=== PATIENT | male | born 1990 | race Caucasian/White ===

== ENCOUNTER 2023-02-10 11:07 | Emergency (ER) | payer MEDICAID, OTHER, SELFPAY ==
[2023-02-10 11:40] VITALS: BP 144/97; PULSE 64; RESP 20; TEMP 37; O2SAT 99; BMI 33.3
--- NOTE | 2023-02-10 11:42 | ED.GENADULT ---
HPI - General Adult General Chief complaint: Eye Problems Stated complaint: eye pain twitching Time Seen by Provider: 02/10/23 16:00 Source: patient Mode of arrival: ambulatory Limitations: language barrier History of Present Illness HPI narrative: Patient is a 32 year old assigned male at with a history of iritis presenting to the emergency department today with bilateral eye twitching and intermittent double vision. Patient states that for the last year and a half, he has had intermittent bilateral eye twitching and double vision. Patient states he saw an internal communications specialist in [place] a year and a half ago where they treated him for irritated eyes with drops and an ointment. Patient states that he has not seen a specialist since moving here. 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 Patient denies any current dizziness, lightheadedness, abdominal pain, nausea, vomiting, fever, chills, blurry vision, double vision, loss of vision, chest pain, difficulty breathing, shortness of breath, back pain, night sweats, pain with urination, increased urinary frequency, increased urinary urgency, blood in his urine or stool, syncope or a near syncopal episode, recent trauma or falls, bowel incontinence, bladder incontinence, bowel retention, bladder retention, or any other complaints at this time. Onset (ago): year(s) (1.5) Location: eyes Severity: mild Severity scale (1-10): 3 Relieving factors: none Exacerbating factors: none Associated symptoms: denies other symptoms Treatments prior to arrival: none Related Data Previous Rx's Medication Instructions Recorded erythromycin 5 mg/gram (0.5 %) eye 0.5 inch ophthalmic (eye) Q4H #3.5 02/10/23 ointment grams ketorolac 0.4 % eye drops 1 drp ophthalmic (eye) QID #5 mL 02/10/23 loratadine 10 mg tablet 10 mg PO DAILY #30 tabs 02/10/23 Allergies Allergy/AdvReac Type Severity Reaction Status Date / Time No Known Allergies Allergy Verified 02/10/23 11:56 Review of Systems Constitutional: Constitutional: Reports no additional constitutional complaints, Denies chills, Denies fever(s) and Denies night sweats Eyes: Eyes: Reports no additional eye complaints, Reports blurry vision (now resolved), Denies change in vision, Reports diplopia (now resolved), Denies eye discharge, Denies loss of vision and Denies eye pain ENT: Denies dizziness Cardiovascular: Cardiovascular: Reports no additional cardiovascular complaints, Denies chest pain, Denies lightheadedness, Denies Loss of Consciousness and Denies dyspnea Respiratory: Respiratory: Reports no additional respiratory complaints and Denies dyspnea Gastrointestinal: Gastrointestinal: Reports no additional gastrointestinal complaints, Denies abdominal pain, Denies melena, Denies hematochezia, Denies change in bowel habits and Denies change in stool character Genitourinary: Genitourinary: Reports no additional male genitourinary complaints, Denies hematuria, Denies oliguria, Denies difficulty urinating, Denies dysuria, Denies urinary frequency, Denies urinary hesitancy, Denies urinary incontinence and Denies urinary urgency Musculoskeletal: Musculoskeletal: Reports no additional musculoskeletal complaints, Denies numbness and Denies tingling Neurologic: Denies dizziness, Denies loss of vision, Denies numbness and Denies tingling Psychiatric: Psychiatric: Reports no additional psychiatric complaints Endocrine: Endocrine: Reports no additional endocrine complaints Hematologic/Lymphatic: Hematologic/Lymphatic: Reports no additional hematologic/lymphatic complaints Allergic/Immunologic: Allergic/Immunologic: Reports no additional allergic/immunologic complaints PMFSH Past Medical History Attestation statement: The following information was validated with the patient. Source: old records reviewed and nursing notes reviewed Social History Social History Advance Directives: No Advance Directives Information Provided: No Physical Exam ED Vital Signs: Vital Signs - 24 hr 02/10/23 11:40 02/10/23 15:38 Temperature 98.6 F 98.2 F Pulse Rate 64 89 Respiratory Rate 20 17 Blood Pressure 144/97 H 144/94 H Pulse Oximetry 99 99 Oxygen Delivery Method Room Air Room Air BMI result Body Mass Index 33.3 Const General: cooperative, no acute distress, alert and awake Nutritional Appearance: well nourished Orientation/consciousness: patient oriented x3 Limitations: no limitations HENMT Head: Yes normal to inspection and Yes atraumatic Ears: hearing grossly normal bilaterally and external ears normal General nose exam: Normal external nose present, no nasal discharge noted and no epistaxis Face and sinus: Yes normal facial exam, No abrasion and No laceration Mouth: Normal oral and palatal mucosa present, no drooling and no muffled voice Eyes General: appearance normal, both eyes and all related structures Periorbital: periorbital findings normal Eyelids: Yes eyelids normal Conjunctivae: conjunctivae normal Pupils: Equal, round and reactive pupils present EOM: EOMs intact bilaterally Neck Neck: Yes normal visual inspection, Yes full ROM and Yes no lymphadenopathy Chest Chest palpation & inspection: normal inspection of the chest Resp Effort & Inspection: normal respiratory effort and able to speak in complete sentences GI Inspection: Yes normal to inspection Neuro General: patient oriented x3 and moves all extremities Cranial nerves: Yes Equal, round and reactive pupils present Cognition (Neuro): normal cognition Motor exam (neuro): 5/5 motor strength present throughout Sensory Exam: Normal double simultaneous stimulation for sensation Coordination: [id number] test normal Extrem General: Yes normal to inspection, Yes full ROM and Yes capillary refill normal Psych Appearance: grossly normal Mental Status: mental status grossly normal Affect: normal affect Attitude: cooperative Thought process: Normal thought process present Thought content: Normal thought content present Insight: Good insight present (Psych) Course Course Course Narrative: This is a rapid medical exam: Additional HPI, ROS, PE not included below will be deferred to primary provider. Patient is a 32-year-old [place]ican-speaking male presenting to the emergency department with complaint of double vision to right eye for the past 10-15 days. He denies any injury or trauma. States he was seen at the clinic in [place] and was sent to the emergency department to rule out a more serious etiology but he eloped from ED that day due to the wait. States in [place] 1-1.5 yrs ago, had same symptoms, saw an rubber cutter and shape carver, and was given eyedrops for infection and pressure which improved his symptoms. Reports diplopia is horizontal, intermittent, and has pain as a prodromal symptom prior to diplopia episodes. Plan: visual acuity Medical Decision Making Medical Decision Making MDM Narrative: Patient is a 32 year old assigned male at with a history of iritis presenting to the emergency department today with intermittent bilateral eye irritation and blurry vision. Patient's physical exam was unremarkable. Patient's ocular pressure on the right was 17 and the left was 20. Patient's visual acuity was appropriate. I explained my physical exam findings as well as all test results to the patient. I answered all questions asked by the patient. Will cover for corneal abrasion vs. iritis and have him follow up with an internal communications specialist. I stressed the importance of the patient taking his medication as prescribed. I stressed the importance of the patient following up with his primary care provider and an internal communications specialist. I stressed the importance of the patient returning to the emergency department immediately if his symptoms were to worsen or if he were to develop any dizziness, shortness of breath, difficulty breathing, chest pain, blurry vision, loss of vision, nausea, vomiting, abdominal pain, fever, chills, back pain, or any other complaints. Patient verbalized agreement and understanding with this treatment plan and discharge. Differential Diagnosis Differential Diagnoses: The differential diagnosis associated with the presentation includes Iritis Corneal abrasion Glaucoma Seasonal allergies Tests considered The following testing was considered but not selected: CT scan of the head and neck were considered however, the patient's current presentation does not warrant imaging. Prescription Management I considered prescription management with: Pain Medication (patient prescribed pain relief eye drops) and Antibiotic (patient prescribed an ocular antibiotic) Discharge Plan Discharge Clinical Impression: Acute iritis Patient Disposition: Home, Self-Care Instructions: Iritis (ED) Additional Instructions: Follow up with your primary care provider and an internal communications specialist. Return to the emergency department immediately if your symptoms worsen or if you develop any dizziness, shortness of breath, difficulty breathing, chest pain, blurry vision, loss of vision, nausea, vomiting, abdominal pain, fever, chills, back pain, or any other complaints. Sarah un seguimiento con victoria proveedor de atenci?n primaria y un oftalm?logo. Regrese al departamento de emergencias inmediatamente si carolina s?ntomas empeoran o si presenta mareos, dificultad para respirar, dificultad para respirar, dolor en el pecho, visi?n borrosa, p?rdida de la visi?n, n?useas, v?mitos, dolor abdominal, fiebre, escalofr?os, dolor de espalda o cualquier otras quejas. Prescriptions: New loratadine 10 mg tablet 10 mg PO DAILY Qty: 30 0RF ketorolac 0.4 % drops 1 drp ophthalmic (eye) QID Qty: 5 0RF erythromycin 5 mg/gram (0.5 %) ointment 0.5 inch ophthalmic (eye) Q4H Qty: 3.5 0RF Referrals: [facility] [[place] Group] (Call to establish and follow up with a primary care provider. If you already have a primary care provider, please follow up with them. Llame para establecer y realizar un seguimiento con un proveedor de atenci?n primaria. Si ya tiene un proveedor de atenci?n primaria, sarah un seguimiento con ?l.) [facility] [facility] [Provider Group] (Call to establish and follow up with a primary care provider. If you already have a primary care provider, please follow up with them. Llame para establecer y realizar un seguimiento con un proveedor de atenci?n primaria. Si ya tiene un proveedor de atenci?n primaria, sarah un seguimiento con ?l.) [facility] [place] [facility] [[facility]] (Call to establish and follow up with a primary care provider. If you already have a primary care provider, please follow up with them. Llame para establecer y realizar un seguimiento con un proveedor de atenci?n primaria. Si ya tiene un proveedor de atenci?n primaria, sarah un seguimiento con ?l.) [facility] [Physician] - (Call to establish and follow up with an internal communications specialist. Llame para establecer y realizar un seguimiento con un oftalm?logo.) Stand Alone Forms: Work/School Release Print Language: Puerto [place]ican
[2023-02-10 15:38] VITALS: BP 144/94; PULSE 89; RESP 17; TEMP 36.8; O2SAT 99
== END 2023-02-10 16:54 | disposition home or self-care (01) ==
PROVIDERS: Emergency Provider Emergency Medicine
DX: H20.013 Primary iridocyclitis, bilateral (principal); H53.8 Other visual disturbances
CPT/HCPCS: 99283

== ENCOUNTER 2023-12-31 23:27 | Emergency (ER) | payer SELFPAY ==
[2023-12-31 23:56] VITALS: BP 146/86; PULSE 79; RESP 18; TEMP 36.6; O2SAT 100; BMI 32.1
[2024-01-01 00:37] LABS: IDNOW Serial# 9DB6401D; Influenza A Negative (Negative); Influenza B2 Negative (Negative)
[2024-01-01 00:38] LABS: COVID-19 Test Negative (Negative); IDNOW Serial# 152EDE1D
--- NOTE | 2024-01-01 00:59 | ED_ITS ---
HPI - Headache General Chief Complaint: Headache Stated Complaint: Naseaous/head hurts/eyes hurt Time Seen by Provider: 01/01/24 00:56 Source: patient Mode of arrival: ambulatory Limitations: no limitations History of Present Illness ED Provider: david MONTEZ Narrative: Patient with history of headaches never been diagnose who has not seen PCP for headaches comes here for right-sided headache with light sensitivity and nausea for last 3 days took Excedrin feeling slightly better no fever no chills no neck pain Related Data Previous Rx's ?Medication ?Instructions ?Recorded erythromycin 5 mg/gram (0.5 %) eye 0.5 inch ophthalmic (eye) Q4H #3.5 02/10/23 ointment grams ketorolac 0.4 % eye drops 1 drp ophthalmic (eye) QID #5 mL 02/10/23 loratadine 10 mg tablet 10 mg PO DAILY #30 tabs 02/10/23 [id number] 1 tab PO Q6H PRN haeadace #20 tabs 01/01/24 50 mg-325 mg-40 mg tablet sumatriptan succinate 50 mg tablet 50 mg PO Q2H PRN migraine headache 01/01/24 (Imitrex) #10 tabs Allergies Allergy/AdvReac Type Severity Reaction Status Date / Time No Known Allergies Allergy Verified 12/31/23 23:58 Review of Systems Review of Systems: Yes all other systems are reviewed and are negative [facility] Social History Social History Alcohol intake: current Alcohol intake frequency: holidays/special occasions only Use of substances other than those prescribed or required for medical reasons: No Advance Directives: No Advance Directives Information Provided: Yes Physical Exam Vital Signs: Vital Signs: Last Vital Signs Temp 97.8 F 01/01/24 02:32 Pulse 79 01/01/24 02:32 Resp 18 01/01/24 02:32 BP 146/86 H 01/01/24 02:32 Pulse Ox 100 01/01/24 02:32 O2 Del Method Room Air 01/01/24 02:32 BMI result Body Mass Index 32.1 Appearance: Alert. Oriented X3. No acute distress. Eyes: Photosensitive ENT: Pharynx normal. Oral Mucosa moist no temporal artery tenderness Neck: Normal inspection. Neck supple. CVS: Normal heart rate and rhythm. Pulses normal. Respiratory: No respiratory distress. Equal air entry bilateral, no wheezing/rales/rhonchi Abdomen: Soft and nontender. Bowel sounds are present, no mass palpable, no CVA tenderness Skin: Skin warm and dry. Normal skin color. Normal skin turgor. Extremities: No lower extremity edema. No calf tenderness Neuro: Oriented X 3. No motor deficit. No sensory deficit.No cerebellar signs , cranial nerves II-XII intact Medications Administered Discontinued Medications Generic Name Dose Route Start Last Admin Trade Name Freq PRN Reason Stop Dose Admin Sumatriptan Succinate 6 mg 01/01/24 01:19 01/01/24 01:44 Sumatriptan Succinate 6 Mg/0.5 Ml Vial SUBCUT 01/01/24 01:20 6 mg ONCE ONE Administration Medical Decision Making Medical Decision Making [facility] Narrative: Patient clinically with migraine headache responded to Imitrex will discharge patient home on Imitrex and Fioricet Lab Data Labs: Lab Results 01/01/24 Range/Units 00:13 COVID-19 (EDMUNDO) Negative (Negative) COVID-19 Clin Com See Note Influenza Type A (JOSE) Negative (Negative) Influenza Type B (JOSE) Negative (Negative) Influenza A & B Note See Note Discharge Plan Discharge Clinical Impression: Migraine Patient Disposition: Home, Self-Care Instructions: Migraine Headache (ED) Additional Instructions: Take Imitrex 1 tablet at onset of headache may repeat in 2 hours if headache persists not more than 2 tablets in 24 hours Fioricet 1 tablet every 6 hours as needed if headache continues Follow with your PCP Prescriptions: New sumatriptan succinate [Imitrex] 50 mg tablet 50 mg PO Q2H PRN (Reason: migraine headache) Qty: 10 0RF Rx Instructions: do not exceed 2 doses per 24 hrs [id number] 50-325-40 mg tablet 1 tab PO Q6H PRN (Reason: haeadace) Qty: 20 0RF No Action loratadine 10 mg tablet 10 mg PO DAILY Qty: 30 0RF ketorolac 0.4 % drops 1 drp ophthalmic (eye) QID Qty: 5 0RF erythromycin 5 mg/gram (0.5 %) ointment 0.5 inch ophthalmic (eye) Q4H Qty: 3.5 0RF Interventions: ED Discharge Assessment Last Done: 01/01/24 02:32 Discharge Date/Time: 01/01/24 02:20 Print Language: Kinyarwanda
[2024-01-01] MEDS: SUMAtriptan succinate 6 MG/0.5 ML VIAL SUBCUT (01:44)
[2024-01-01 02:32] VITALS: BP 146/86; PULSE 79; RESP 18; TEMP 36.6; O2SAT 100
== END 2024-01-01 02:20 | disposition home or self-care (01) ==
PROVIDERS: Emergency Provider Internal Medicine
DX: G43.909 Migraine, unspecified, not intractable, without status migrainosus (principal); R11.0 Nausea; Z79.899 Other long term (current) drug therapy; Z11.52 Encounter for screening for COVID-19
CPT/HCPCS: 87502; 87635; 96372; 99284; J3030